=== PATIENT | male | born 1945 | race Caucasian/White ===

== ENCOUNTER → 2016-07-12 | Day surgery (SDC) | payer OTHER, MEDICARE ==
[2016-07-11 12:44] VITALS: Ht 172.7 cm; Wt 104.5 kg
[~2016-07-12] VITALS: Ht 172.7 cm; Wt 104.5 kg
[~2016-07-12] MED LIST: ATEN-173 PO; BUPIVACAINE 0.25% 2.5MG/ML PF 10 ML VIAL ONE; CHOL1000 PO; CYAN10005 PO; DILT120C68 PO; GLIP-197 PO; LIDOCAINE HCL 1% MPF 5 ML VIAL ONE; MAGN250T3 PO; PRD/25 PO; PRVC40 PO; TERA5CAP PO
--- NOTE | 2016-07-12 13:45 | History & Physical Bridge - [place] ---
H&P Re-Evaluation Bridge Note: I have examined the patient, reviewed the History & Physical and in the interval since the performance of the History & Physical I have noted the following changes of clinical significance: No changes noted
[2016-07-12 14:11] VITALS: TEMP 36.6
--- NOTE | 2016-07-12 14:15 | Discharge Instructions ---
Discharge Instructions Visit Reason for Visit: Low Back Pain Discharge Discharge Diagnosis / Problem: Low back pain Discharge Goals Goal(s): Decrease discomfort, Improve function Activity Recommendations Activity Limitations: resume your previous activity Anesthesia . Post Anesthesia Instructions: If you have had General Anesthesia or IV Sedation: * Do not drive today. * Resume driving when surgeon permits. * Do not make important decisions or sign legal documents today. * Call surgeon for: 1. Temperature elevations greater than 101 degrees F. 2. Uncontrollable pain. 3. Excessive bleeding. 4. Persistent nausea and vomiting. 5. Medication intolerance (nausea, vomiting or rash). * For nausea and vomiting use only clear liquids such as: tea, soda, bouillon until nausea subsides, then gradually increase diet as tolerated. * If you have any concerns or questions, call your surgeon's office. If physician is unavailable and it is an emergency, call 911 or go to the nearest emergency room. . Diet Recommendations Recommended Home Diet: resume previous diet Procedures Procedures Performed: Bilateral [id number] Branch Blocks Pending Studies Studies pending at discharge: no Medical Emergencies . Who to Call and When: Medical Emergencies: If at any time you feel your situation is an emergency, please call 911 immediately. . Non-Emergent Contact Non-Emergency issues call your: Specialist . . "Provider Documentation" section prepared by Julio C Moreno.
[2016-07-12 14:23] VITALS: BP 140/73; PULSE 57; O2SAT 98
--- NOTE | 2016-07-12 14:28 | OPERATIVE REPORT ---
DATE OF OPERATION: 07/12/2016 PREOPERATIVE DIAGNOSIS: Lumbar facet arthropathy L4-5. POSTOPERATIVE DIAGNOSIS: Same. PROCEDURE: Bilateral L4-5 medial branch blocks. INDICATIONS FOR PROCEDURE: The patient is a 71-year-old white male who has chronic low back pain. His examination was consistent with facet type pain at L4-5, worse with extension, extension rotation. He presents today for medial branch blocks to try to confirm that this is indeed the generator of pain in his lower lumbar spine. PHYSICAL EXAMINATION: Pleasant male, seated comfortably, in no apparent distress. He has point tenderness to palpation of his L4-5 facets bilaterally, worse with extension and particularly extension, rotation. He has normal lower extremity strength with the exception of the right S1 dermatomal distribution. CONSENT: Verbal and written consent was obtained from the patient. Risks and benefits were reviewed. Risks include but are not limited to abscess and allergic reaction. He wishes to proceed. DESCRIPTION OF PROCEDURE: The patient was taken back to the special procedures room of the [facility] where he was maintained in a prone position. Backside was cleansed with Betadine x3 and a dry sterile dressing was applied. Fluoroscope was used to identify the L4-5 transverse process junctions on the left. Overlying skin was anesthetized with 1.25 mL of lidocaine 1% with a 25-gauge 1.5-inch needle. A 25-gauge 3.5-inch spinal needle was then directed under fluoroscopic guidance to the target. Then bupivacaine 0.25% was used to inject and anesthetized these areas. After negative aspiration, 1 mL was used to both sites. The right L4 transverse process junction and the right L5 transverse process junction were then fluoroscopically identified. Overlying skin anesthetized with 1.25 mL of lidocaine 1% with a 25-gauge 1.5-inch needle. A 25-gauge 3.5-inch spinal needle was then directed targeting both sites and then injected with 1 mL of bupivacaine 0.25% at each site. Injection was well tolerated. DISPOSITION: The patient is taken out into the discharge recovery area where he will be discharged home once discharge criteria have been met. He has been asked to keep a pain journal for the next 2 days. He will follow up in the [facility] office. I attest to the content of the Intraoperative Record and any orders documented therein. Any exceptio ns are noted below.
== END | disposition home or self-care (01) ==
LOC: X.SURG 12:36
PROVIDERS: ATTEND Physical Medicine & Rehabilitation
DX: M47.817 Spondylosis without myelopathy or radiculopathy, lumbosacral region (principal); E11.9 Type 2 diabetes mellitus without complications; I10 Essential (primary) hypertension

== ENCOUNTER → 2016-08-23 | Day surgery (SDC) | payer OTHER, MEDICARE ==
[2016-08-21 09:52] VITALS: Ht 172.7 cm; Wt 104.5 kg
[~2016-08-23] VITALS: Ht 172.7 cm; Wt 104.5 kg
[~2016-08-23] MED LIST changes: +BUPIVACAINE 0.25% 2.5MG/ML PF 10 ML VIAL INFIL ONE; -BUPIVACAINE 0.25% 2.5MG/ML PF 10 ML VIAL ONE; +LIDOCAINE HCL 1% 20 ML VIAL ONE; -LIDOCAINE HCL 1% MPF 5 ML VIAL ONE
[2016-08-23 13:57] VITALS: TEMP 37.2
--- NOTE | 2016-08-23 14:02 | Discharge Instructions ---
Discharge Instructions Visit Reason for Visit: Low Back Pain Discharge Discharge Diagnosis / Problem: low back pain Discharge Goals Goal(s): Decrease discomfort, Improve function Activity Recommendations Activity Limitations: resume your previous activity Anesthesia . Post Anesthesia Instructions: If you have had General Anesthesia or IV Sedation: * Do not drive today. * Resume driving when surgeon permits. * Do not make important decisions or sign legal documents today. * Call surgeon for: 1. Temperature elevations greater than 101 degrees F. 2. Uncontrollable pain. 3. Excessive bleeding. 4. Persistent nausea and vomiting. 5. Medication intolerance (nausea, vomiting or rash). * For nausea and vomiting use only clear liquids such as: tea, soda, bouillon until nausea subsides, then gradually increase diet as tolerated. * If you have any concerns or questions, call your surgeon's office. If physician is unavailable and it is an emergency, call 911 or go to the nearest emergency room. . Diet Recommendations Recommended Home Diet: resume previous diet Procedures Procedures Performed: Bilateral L4-5 Radio Frequency Denervation. Pending Studies Studies pending at discharge: no Medical Emergencies . Who to Call and When: Medical Emergencies: If at any time you feel your situation is an emergency, please call 911 immediately. . Non-Emergent Contact Non-Emergency issues call your: Specialist . . "Provider Documentation" section prepared by Julio C Moreno.
[2016-08-23 14:06] VITALS: BP 144/67; PULSE 52; O2SAT 97
--- NOTE | 2016-08-23 16:09 | OPERATIVE REPORT ---
DATE OF OPERATION: 08/23/2016 PREOPERATIVE DIAGNOSIS: Chronic low back pain, bilateral L4-L5 facet arthropathy. POSTOPERATIVE DIAGNOSIS: Same. PROCEDURE: Bilateral L4-L5 facet denervations. INDICATIONS: The patient is a 71-year-old white male who underwent successful medial branch blocks bilaterally at L4-L5. He presents today for radiofrequency denervation at this area to provide him with longer lasting relief for chronic low back pain. PHYSICAL EXAMINATION: GENERAL: Pleasant male seated comfortably. MUSCULOSKELETAL: Lumbar paraspinal muscles were palpated and noted to be nontender. He has reproduction of pain with extension and his facets are tender bilaterally. He has normal motor examination and S1 dermatome was slightly decreased subjectively bilaterally. Negative seated straight leg raises. CONSENT: Verbal and written consent was obtained from patient. Risks and benefits were reviewed. Risks include but are not limited to an abscess and allergic reaction. The patient wishes to proceed. DESCRIPTION OF PROCEDURE: The patient was taken back to the special procedures room of the [facility] where he was maintained in the prone position. Backside was cleansed with Betadine x3 and a dry sterile dressing was applied. Fluoroscope was used to identify the left L4 transverse process junction and left L5 transverse process junction, and the overlying skin was anesthetized with 1.25 mL of lidocaine 1% with a 25 gauge 1.5-inch needle at each site. A 22-gauge 10 cm Golden needle was then placed contacting bone at each site. He had sensory stimulation that provoked sensation to 0.2 volts at both sites. Motor stimulation provoked localized robust paraspinal spasms, but nothing radiating down the leg. He underwent anesthetization with 1 mL lidocaine 1% at each site and then denervation 80 degrees 100 seconds x2 at each site and then he was anesthetized with bupivacaine 0.25% 1 mL at each site. The right L4 transverse process junction and the right L5 transverse process junction then was fluoroscopically identified. Overlying skin was anesthetized with a 25 gauge 1.5-inch needle with 1.25 mL of lidocaine 1% at each site. A 22 gauge 10 cm Diann needle contacted bone at each site. Motor stimulation provoked again at both sites at 0.2 to 0.1 millivolts. Motor stimulation did not provoke any radiating pain down the leg. At the final positioning and then the sites were anesthetized with additional 1 mL lidocaine 1%, were denervated at 80 degrees 100 seconds x2 at each site and then provided with an additional 1 mL bupivacaine 0.25% at each site. The procedure was well tolerated. DISPOSITION: 1. The patient is taken out into the discharge recovery area where he will be discharged home once discharge criteria have been met. 2. Follow up in the [facility] office in 2-4 weeks. I attest to the content of the Intraoperative Record and any orders documented therein. Any exceptions are noted below. ALBA
== END | disposition home or self-care (01) ==
LOC: X.SURG 12:01
PROVIDERS: ATTEND Physical Medicine & Rehabilitation
DX: M47.816 Spondylosis without myelopathy or radiculopathy, lumbar region (principal)

== ENCOUNTER → 2016-10-29 | Outpatient (CLI) | payer OTHER, MEDICARE ==
[~2016-10-29] MED LIST changes: -BUPIVACAINE 0.25% 2.5MG/ML PF 10 ML VIAL INFIL ONE; -LIDOCAINE HCL 1% 20 ML VIAL ONE
--- NOTE | 2016-10-29 11:01 | DIAGNOSTIC IMAGING REPORT ---
LUMBAR SPINE MRI HISTORY: LOW BACK PAIN TECHNIQUE: Multiplanar multisequence MRI of the lumbar spine was performed without the use of contrast. COMPARISON: PET CT 02/20/2013. FINDINGS: For the purpose of the report the L5-S1 disc space will be located on axial image 23 of 25. Straightening of the lumbar spine. Alignment is intact. No acute fractures. Vertebral body hemangiomas at L2 and L4. The largest at L2 measures 2.2 cm. Mild disc space narrowing at L3-L4 and L5-S1. Moderate disc space narrowing at L4-L5. The conus terminates at the L1 level. Large anterior osteophytes seen at L3-L5. The visualized retroperitoneal soft tissues are unremarkable. Mild edema within the erector spinae muscles with a small amount of subcutaneous edema. There is also mild fatty atrophy of the erector spinae muscles. L1-L2: No significant central canal or neural foraminal narrowing. L2-L3: Small broad-based posterior disc bulge with facet hypertrophy resulting in mild central canal and mild bilateral neural foraminal narrowing. L3-L4: Small broad-based posterior disc bulge with facet hypertrophy resulting in mild central canal and mild bilateral neural foraminal narrowing. L4-L5: Small broad-based posterior disc bulge asymmetric to the right without significant central canal narrowing. There is moderate bilateral neural foraminal narrowing. There is suggestion of a prior left-sided hemilaminectomy. L5-S1: Broad-based posterior disc bulge with a left paracentral focal disc protrusion demonstrating mild inferior subligamentous migration. This compresses the transiting left S1 nerve root. There is also severe bilateral neural foraminal narrowing due to the disc bulge and facet hypertrophy. No significant central canal narrowing. IMPRESSION: 1. Multilevel lumbar spondylosis as described above most pronounced at the L5-S1 level where there is a left paracentral focal disc protrusion which compresses the transiting left S1 nerve root. 2. Mild edema within the bilateral erector spinae muscles which could represent a muscular strain. 3. Straightening of the lumbar spine. 4. No fracture or subluxation. Electronically signed by: Pepe Bond M.D. 10/29/2016 11:00 AM Dictated Date/Time: 10/29/2016 10:45 AM
== END | disposition home or self-care (01) ==
LOC: C.OPENMRI 09:38
PROVIDERS: ATTEND Physical Medicine & Rehabilitation
DX: M54.5 Low back pain (principal)

== ENCOUNTER → 2017-01-23 | Day surgery (SDC) | payer OTHER, MEDICARE ==
[2017-01-02 12:46] VITALS: Ht 172.7 cm; Wt 104.5 kg
[~2017-01-23] VITALS: Ht 172.7 cm; Wt 104.5 kg
[~2017-01-23] MED LIST changes: +IOPAMIDOL INJ 61% 15 ML VIAL ONE; +LIDOCAINE HCL 1% MPF 5 ML VIAL ONE; +SODIUM CHLORIDE 0.9% INJ 10 ML VIAL ONE
--- NOTE | 2017-01-23 15:17 | Discharge Instructions ---
Discharge Instructions Date of Service Jan 23, 2017. Visit Reason for Visit: Lumbar Spinal Stenosis Discharge Discharge Diagnosis / Problem: low back pain Discharge Goals Goal(s): Decrease discomfort, Improve function Activity Recommendations Activity Limitations: resume your previous activity Anesthesia . Post Anesthesia Instructions: If you have had General Anesthesia or IV Sedation: * Do not drive today. * Resume driving when surgeon permits. * Do not make important decisions or sign legal documents today. * Call surgeon for: 1. Temperature elevations greater than 101 degrees F. 2. Uncontrollable pain. 3. Excessive bleeding. 4. Persistent nausea and vomiting. 5. Medication intolerance (nausea, vomiting or rash). * For nausea and vomiting use only clear liquids such as: tea, soda, bouillon until nausea subsides, then gradually increase diet as tolerated. * If you have any concerns or questions, call your surgeon's office. If physician is unavailable and it is an emergency, call 911 or go to the nearest emergency room. . Diet Recommendations Recommended Home Diet: resume previous diet Procedures Procedures Performed: Lumbar Epidural Steroid Injection Pending Studies Studies pending at discharge: no Medical Emergencies . Who to Call and When: Medical Emergencies: If at any time you feel your situation is an emergency, please call 911 immediately. . Non-Emergent Contact Non-Emergency issues call your: Specialist . . "Provider Documentation" section prepared by Julio C Moreno. .
[2017-01-23 15:24] VITALS: BP 122/72; PULSE 54; O2SAT 93
--- NOTE | 2017-01-23 15:49 | OPERATIVE REPORT ---
DATE OF OPERATION: 01/23/2017 PREOPERATIVE DIAGNOSIS: Lumbar spinal stenosis with neurogenic claudication. POSTOPERATIVE DIAGNOSIS: Same. PROCEDURE: Right paramedian L5-S1 intralaminar epidural steroid injection under fluoroscopic guidance. SURGEON: Dr. Julio C Moreno. INDICATIONS: The patient is a 71-year-old white male who presents today for an epidural injection. He has not responded to conservative measures. Still continues to be bothered and functionally limited by pain particularly with ambulating and standing. PHYSICAL EXAMINATION: Pleasant male seated comfortably. He has no point tenderness to palpation of his lower back. He has normal motor and sensory examination with no sensory loss. CONSENT: Verbal and written consent was obtained from the patient. Risks and benefits were reviewed. Risks include but are not limited to epidural abscess, epidural hematoma, allergic reaction, dural puncture. The patient wishes to proceed. PROCEDURE: The patient was taken back to the special procedures room of the [facility] where he was maintained in a prone position. Backside was cleansed with Betadine x3 and a dry sterile dressing was applied. Fluoroscope was used to identify the L5-S1 intralaminar space. Overlying skin on the right side was anesthetized with 4 mL of lidocaine 1% with a 25 gauge 1.5-inch needle. A 22 gauge 4-1/4 inch Tuohy needle is directed towards the interlaminar space and advanced under lateral fluoroscopic guidance to a depth of 9 cm when loss of resistance is noted. Isovue-300 contrast 1 mL was injected in which demonstrated epidural uptake pattern which was confirmed with both AP and lateral views. He then underwent injection after negative aspiration of 40 mg of Depo-Medrol, 4 mL of preservative free sodium chloride. Injection was well tolerated. DISPOSITION: 1. The patient is taken out into the discharge recovery area where he will be discharged home once discharge criteria have been met. 2. Follow up in the [facility] office in 2-4 weeks. I attest to the content of the Intraoperative Record and any orders documented therein. Any exception s are noted below.
== END | disposition home or self-care (01) ==
LOC: X.SURG 13:37
PROVIDERS: ATTEND Physical Medicine & Rehabilitation
DX: M48.07 Spinal stenosis, lumbosacral region (principal); M54.5 Low back pain

== ENCOUNTER 2017-10-29 08:40 | Inpatient (IN) | payer OTHER, MEDICARE ==
[2017-10-17 09:33] VITALS: BMI 35.0
--- NOTE | 2017-10-17 10:10 | PAT Medication Instructions ---
Service Date Oct 17, 2017. Current Home Medication List Atenolol (Tenormin), 25 MG PO QAM Cholecalciferol (D 2000), 1 TAB PO QAM Cyanocobalamin (B-12), 1 TAB PO QAM Diltiazem Hcl Ext Rel (Tiazac), 120 MG PO QAM Glipizide (Glipizide Er), 1 TAB PO QAM Losartan Potassium (Cozaar), 25 MG PO QPM Magnesium Oxide (Mg Supplement (Magnesium), 1 TAB PO QAM Pravastatin (Pravachol ), 20 MG PO QPM Prednisone (Prednisone), 5 MG PO QAM Terazosin (Hytrin), 5 MG PO HS Medication Instructions For Your Scheduled Surgery - Hold the following medications the morning of surgery: Cholecalciferol (D 2000), 1 TAB PO QAM Cyanocobalamin (B-12), 1 TAB PO QAM Glipizide (Glipizide Er), 1 TAB PO QAM Magnesium Oxide (Mg Supplement (Magnesium), 1 TAB PO QAM - Take the following medications the morning of surgery with a sip of water: Atenolol (Tenormin), 25 MG PO QAM Diltiazem Hcl Ext Rel (Tiazac), 120 MG PO QAM Prednisone (Prednisone), 5 MG PO QAM - Take the following medications as scheduled the night before surgery: Losartan Potassium (Cozaar), 25 MG PO QPM Pravastatin (Pravachol ), 20 MG PO QPM Terazosin (Hytrin), 5 MG PO HS If you have any questions please call us at [phone] or [phone] or [phone]
--- NOTE | 2017-10-17 10:43 | DIAGNOSTIC IMAGING REPORT ---
CHEST 2 VIEWS ROUTINE CLINICAL HISTORY: Preoperative chest COMPARISON STUDY: March 25, 2013 FINDINGS: The heart is the upper limits of normal in size. There is slight progression in the bilateral interstitial basilar opacities left greater than right. There is no acute lobar consolidation. There is no overt failure. There are no pleural effusions.[ IMPRESSION: Minor progression in the interstitial lung disease with a basilar predominance. Electronically signed by: Neville Taveras M.D. 10/17/2017 10:42 AM Dictated Date/Time: 10/17/2017 10:41 AM
--- NOTE | 2017-10-17 10:44 | DIAGNOSTIC IMAGING REPORT ---
LATERAL VIEW OF THE CERVICAL SPINE IN FLEXION AND EXTENSION (3 VIEWS) CLINICAL HISTORY: Rheumatoid arthritis. Preop study. COMPARISON STUDY: No previous studies for comparison. FINDINGS: The prevertebral soft tissues are normal. There are mild multilevel degenerative changes. There is no evidence of instability on flexion or extension. Incidental note is made of calcifications within the ligamentum nuchae. IMPRESSION: 1. Degenerative change 2. No evidence of instability on flexion or extension Electronically signed by: Neville Taveras M.D. 10/17/2017 10:43 AM Dictated Date/Time: 10/17/2017 10:42 AM
[2017-10-17 11:34] LABS: CALCIUM 8.7 mg/dl (8.5-10.1); CREATININE 1.95 mg/dl (0.60-1.40); POTASSIUM 3.7 mmol/L (3.5-5.1)
[2017-10-17 11:40] LABS: HEMATOCRIT 39.6 % (42-52); HEMOGLOBIN 13.8 g/dL (14.0-18.0); MEAN CELL VOLUME 86.7 fL (80-100); MEAN CORPUSCULAR HEMOGLOBIN 30.2 pg (25-34); MEAN CORPUSCULAR HGB CONC 34.8 g/dl (32-36); MEAN PLATELET VOLUME 11.9 fL (7.4-10.4); PLATELET COUNT 102 K/uL (130-400); RED CELL DISTRIBUTION WIDTH CV 14.5 % (11.5-14.5); RED CELL DISTRIBUTION WIDTH SD 44.8 fL (36.4-46.3); WHITE BLOOD COUNT 6.61 K/uL (4.8-10.8)
[2017-10-17 11:41] LABS: BASO % 0.5 %; BASO ABS # 0.03 K/uL (0-0.2); EOS % 1.5 %; IG# 0.03 K/uL (0.00-0.02); LYMPH % 5.3 %; LYMPH ABS # 0.35 K/uL (1.2-3.4); MONO % 7.3 %; MONO ABS # 0.48 K/uL (0.11-0.59); NEUT % 84.9 %; NEUT ABS # 5.62 K/uL (1.4-6.5)
[~2017-10-29] VITALS: Ht 172.7 cm; Wt 105.6 kg
[2017-10-29] VITALS (7 sets, daily range): BP systolic 116–171; BP diastolic 57–74; PULSE 53–76; TEMP 36.4–36.9; O2SAT 90–97; Ht 172.7 cm; Wt 105.6 kg
[~2017-10-29 08:40] MED LIST changes: +ACETAMINOPHEN 500 MG TAB PO SCH; +CEFAZOLIN 2000MG IV PUSH 15 ML IV SCH; -CHOL1000 PO; +CHOL1TAB76 PO; -CYAN10005 PO; +CYAN1TAB17 PO; +CeleBREX 200 MG CAP PO SCH; +GABAPENTIN 300 MG CAP PO SCH; -IOPAMIDOL INJ 61% 15 ML VIAL ONE; +LACTATED RINGER'S 1000ML 1,000 ML IV SCH; -LIDOCAINE HCL 1% MPF 5 ML VIAL ONE; +LOSA1TAB PO; +MAGN1CAP2 PO; -MAGN250T3 PO; +PRAV20TA PO; -PRD/25 PO; +PRED-301 PO; -PRVC40 PO; -SODIUM CHLORIDE 0.9% INJ 10 ML VIAL ONE
[2017-10-29] MEDS ORDERED: ATROPINE SULFATE 0.1 MG/ML 5ML SYR IV PRN (08:45)
[2017-10-29] MEDS ORDERED: FENTANYL CITRATE INJ 50 MCG/1 ML 2 ML VIAL IV PRN (08:45)
[2017-10-29] MEDS ORDERED: ONDANSETRON INJ 2 MG/ML 2 ML VIAL IV PRN ×2 (08:45→14:30)
[2017-10-29] MEDS ORDERED: HYDROmorphone INJ 0.5 MG/0.5 ML SYR IV PRN (08:45)
[2017-10-29] MEDS ORDERED: EpHEDrine SULFATE INJ 50 MG/ML AMP IV PRN (08:45)
[2017-10-29] MEDS ORDERED: DEXAMETHASONE SOD INJ 4 MG/ML VIAL ONE (10:33)
[2017-10-29] MEDS ORDERED: MIDAZOLAM HCL 1 MG/ML 2ML VIAL ONE (10:33)
[2017-10-29] MEDS ORDERED: ONDANSETRON INJ 2 MG/ML 2 ML VIAL ONE (10:33)
[2017-10-29] MEDS ORDERED: NEOSTIGMINE METHYLSULFATE 1 MG/ML 10ML VIAL ONE (10:33)
[2017-10-29] MEDS ORDERED: LIDOCAINE HCL 2% 2 ML VIAL (20MG/ML) ONE (10:33)
[2017-10-29] MEDS ORDERED: PROPOFOL IV EMULSION 10 MG/ML 20 ML VIAL ONE (10:33)
[2017-10-29] MEDS ORDERED: GLYCOPYRROLATE INJ 0.2 MG/ML VIAL ONE ×2 (10:33→13:42)
[2017-10-29] MEDS ORDERED: FENTANYL CITRATE INJ 50 MCG/1 ML 2 ML VIAL ONE ×2 (10:34→14:22)
--- NOTE | 2017-10-29 11:45 | History and Physical ---
History & Physical Date October 29, 2017. Chief Complaint Back and leg pain History of Present Illness The patient is a 72 year old male with complaints of back and leg pain Additional History Hepatic Disease: No Endocrine Disorder: No Kidney Disease: No Hypertension: Yes Heart Disease: No Bleeding Tendencies: No Infectious Diseases: No Other: Diabetes Allergies Coded Allergies: No Known Allergies (Verified , 10/29/17) Home Medications Scheduled Atenolol (Tenormin), 25 MG PO QAM Cholecalciferol (D 1999), 1 TAB PO QAM Cyanocobalamin (B-12), 1 TAB PO QAM Diltiazem Hcl Ext Rel (Tiazac), 120 MG PO QAM Glipizide (Glipizide Er), 1 TAB PO QAM Losartan Potassium (Cozaar), 25 MG PO QPM Magnesium Oxide (Mg Supplement (Magnesium), 1 TAB PO QAM Pravastatin (Pravachol ), 20 MG PO QPM Prednisone (Prednisone), 5 MG PO QAM Terazosin (Hytrin), 5 MG PO HS Physical Examination Skin: warm/dry, no rash Eyes: normal inspection, EOMI, sclerae normal ENT: normal ENT inspection, pharynx normal Head: normocephalic, atraumatic Neck: supple, no adenopathy, trachea midline Respiratory/Chest: lungs clear, normal breath sounds, no respiratory distress Cardiovascular: regular rate, rhythm, no edema, no murmur Abdomen / GI: normal bowel sounds, non tender Back: normal inspection Extremities: normal inspection, normal range of motion Neurologic/Psych: no motor/sensory deficits, alert, normal reflexes, oriented x 3 Diagnosis Lumbar spinal stenosis with neurogenic claudication Plan of Treatment T LIF L5-S1
[2017-10-29] MEDS ORDERED: BACITRACIN 50000 UNIT VIAL ONE (11:54)
[2017-10-29] MEDS ORDERED: BUPIVACAINE 0.5 % 5 MG/1 ML MPF 30ML VIAL ONE (11:55)
[2017-10-29] MEDS ORDERED: EpINEphrine INJ 1MG/ML AMP 1 MG/ML AMP ONE (11:56)
[2017-10-29] MEDS ORDERED: CISATRACURIUM BESYLATE IV SOLN 2 MG/ML 10 ML VIAL ONE (13:41)
[2017-10-29] MEDS ORDERED: SUCCINYLCHOLINE CHLORIDE 20 MG/ML 10 ML VIAL IV ONE (13:42)
[2017-10-29] MEDS ORDERED: EpHEDrine SULFATE 50MG/5ML SYR ONE (13:42)
[2017-10-29] MEDS ORDERED: PHENYLEPHRINE 100MCG/ML 5ML SYR ONE (13:42)
[2017-10-29] MEDS ORDERED: FLOSEAL HEMOSTATIC MATRIX 10ML TOP ONE (14:12)
[2017-10-29] MEDS ORDERED: SODIUM CHLORIDE 0.9% 1000ML 1,000 ML IV SCH (14:24)
--- NOTE | 2017-10-29 14:24 | [facility] Operative Report ---
Operative Report Operative Date October 29, 2017. Pre-Operative Diagnosis Lumbar spinal stenosis with neurogenic claudication Post-Operative Diagnosis Lumbar spinal stenosis with neurogenic claudication Procedure(s) Performed 1. Lumbar decompression medial facetectomy foraminotomies L4-5 L5-S1. #2 posterior spinal fusion L5-S1. #3 posterior instrumentation L5-S1. #4 interbody fusion L5-S1. #5 titanium cage 10 x 26 at L5-S1. #6 placement of local autograft posterior lateral gutters. #7 infuse collagen sponge, Nast graft the posterior gutters and ostial amp in the interbody space. Surgeon Dr. Julio C Alberto [employer] Sales Representative Surgeon(s) May Beatty PA-C Estimated Blood Loss 300ml Findings Severe spinal stenosis. Specimens None per surgeon Anesthesia Type General Description of Procedure Patient was met with preoperatively case discussed all questions addressed. After informed consent obtained patient was taken to the operative suite underwent intubation and placed in the prone position the Damian table on top of the Alvin frame. All bony prominences well-padded eyes inspected to ensure no external pressure placed upon. This point the lumbar spine was prepped and draped in normal sterile fashion. Sharp dissection with the assistance Bovie cautery was performed on November exposing the lamina and transverse processes of L5 and sacral ala bilaterally. From caudocephalad fashion complete laminectomy of L5 partial laminectomy L4 was performed addressing severe lateral recess and foraminal stenosis. If this complete pedicle screws were placed in L5-S1 levels bilaterally with the assistance of fluoroscopy. Probe size rods were placed. Through a transforaminal approach and left complete discectomy was performed endplates created to subcortical bleeding bone and a 10 x 26 mm titanium cage filled with ostium bone graft tapped in position. The rods were then compressed locked in final position bilaterally. The transverse processes of L5 and sacral ala burred to subcortical bleeding bone. Infuse collagen sponge mesh graft and locally harvested morselized autograft placed in the posterior lateral gutters. A 15 round YOANA drain inserted. Incision was then closed with 1 Vicryl in the fascia 2-0 Vicryl subcutaneously 4-0 Monocryl for final closure Steri-Strips sterile dressings placed. Patient weakened the PACU stable condition. Please note May Beatty present of the entire procedure involved in patient positioning complex portions of the surgery and fashion closure. I attest to the content of the Intraoperative Record and any orders documented therein. Any exceptions are noted below.
[2017-10-29] MEDS ORDERED: ALUMINUM/MAGNESIUM SUSP 30 ML UDC PO PRN (14:30)
[2017-10-29] MEDS ORDERED: METOCLOPRAMIDE HCL INJ 5 MG/ML 2 ML VIAL IV PRN (14:30)
[2017-10-29] MEDS ORDERED: NALOXONE HCL 0.4 MG/1 ML VIAL/CARP IV PRN (14:30)
[2017-10-29] MEDS ORDERED: ACETAMINOPHEN IV 100 ML IV PRN (14:30)
[2017-10-29] MEDS ORDERED: CEFAZOLIN IV 2,000 MG in DEXTROSE 5% 50ML 50 ML IV SCH (14:30)
[2017-10-29] MEDS ORDERED: SOD PHOSPHATE/SOD BIPHOSPHATE ENEMA 132 ML BTL PR PRN (14:30)
[2017-10-29] MEDS ORDERED: LORAZEPAM INJ 0.5 MG in SYRINGE 0 ML IV PRN (14:30)
[2017-10-29] MEDS ORDERED: ACETAMINOPHEN 500 MG TAB PO PRN (14:30)
[2017-10-29] MEDS ORDERED: DO NOT ADMINISTER FLU VACCINE PRN (14:30)
[2017-10-29] MEDS ORDERED: HYDROmorphone HCL 0.5MG/ML 50 ML CASSETTE IV PRN (14:30)
[2017-10-29] MEDS ORDERED: MAGNESIUM HYDROXIDE SUSP 30 ML UDC PO PRN (14:30)
[2017-10-29] MEDS ORDERED: PROMETHAZINE HCL INJ 12.5 MG in SODIUM CHLORIDE 0.9% 50ML 50 ML IV PRN (14:30)
[2017-10-29] MEDS ORDERED: DO NOT ADMINISTER PNEUMOCOCCAL VACCINE PRN (14:30)
[2017-10-29] MEDS ORDERED: LORAZEPAM 0.5 MG TAB PO PRN (14:30)
[2017-10-29] MEDS ORDERED: BISACODYL 10 MG SUPP PR PRN (14:30)
[2017-10-29] MEDS ORDERED: FAMOTIDINE 20 MG TAB PO PRN (14:30)
[2017-10-29] MEDS ORDERED: hydrOXYzine HCL 25 MG TAB PO PRN (14:30)
[2017-10-29] MEDS ORDERED: HYDROmorphone HCL 0.5MG/ML 50 ML CASSETTE ONE (14:46)
--- NOTE | 2017-10-29 15:12 | Anesthesiology Progress Note ---
Anesthesia Post Op Note Date & Time October 29, 2017 at 15:11 Vital Signs Pain Intensity: 0 Vital Signs Past 12 Hours Date Time Temp Pulse Resp B/P (MAP) Pulse Ox O2 Delivery O2 Flow Rate FiO2 10/29/17 15:10 64 22 140/57 98 Nasal Cannula 4 10/29/17 15:00 66 21 147/61 96 Oxymask 10 10/29/17 14:50 66 17 115/52 95 Oxymask 10 10/29/17 14:42 36.1 72 16 120/51 96 Oxymask 10 10/29/17 09:23 36.5 53 20 137/62 92 Room Air Notes Mental Status: alert / awake / arousable, participated in evaluation Pt Amnestic to Procedure: Yes Nausea / Vomiting: adequately controlled Pain: adequately controlled Airway Patency, RR, SpO2: stable & adequate BP & HR: stable & adequate Hydration State: stable & adequate Anesthetic Complications: no major complications apparent
--- NOTE | 2017-10-29 15:41 | DIAGNOSTIC IMAGING REPORT ---
LUMBAR SPINE 2 OR 3 VIEW CLINICAL HISTORY: L5-S1 LUMBAR INTERBODY FUSION fusion TECHNIQUE: Image intensifier COMPARISON STUDY: None FINDINGS: Image intensifier was used for an L5-S1 fusion and disc spacer placement IMPRESSION: Image intensifier usage for lumbar laminectomy and fusion The above report was generated using voice recognition software. It may contain grammatical, syntax or spelling errors. Electronically signed by: Chet Yu M.D. 10/29/2017 3:39 PM Dictated Date/Time: 10/29/2017 3:36 PM
[2017-10-29] MEDS ORDERED: DEXTROSE 50% 50 ML SYR IV PRN (17:00)
[2017-10-29] MEDS ORDERED: CARBOHYDRATES FOR HYPOGLYCEMIA PO PRN (17:00)
[2017-10-29] MEDS ORDERED: GLUCAGON FOR INJ 1 MG VIAL SQ PRN (17:00)
[2017-10-29] MEDS ORDERED: GLUCOSE 10 TABS/TUBE PO PRN (17:00)
[2017-10-29] MEDS ORDERED: GLUCOSE 40% GEL 15 GM TUBE PO PRN (17:00)
--- NOTE | 2017-10-29 17:23 | Medical Consult ---
Consultation Date of Consultation: October 29, 2017. Attending Physician: Julio C Alberto D.O. Reason for Consultation: Medical management History of Present Illness Pt is 72 y/o M with PMH DM II, HTN, HLD, RA, BPH, interstitial lung disease, history of lymphoma S/P chemo in 2009 seen in medical consult after L4-L5, L5- S1 lumbar decompression and spinal fusion of L5-S1 by Dr. Alberto. Patient states pain is moderately well controlled at this time. Denies any paresthesias to lower extremities at this time. Denies nausea or vomiting. Drinking fluids without difficulty. Hasn't urinated yet since procedure. Last BM yesterday. Reports interstitial lung disease and has exertional SOB chronically, denies any increased SOB. Denies fever/chills, diaphoresis, N/V/D/C , HAIR, dizziness, syncope, vision changes, neck pain, CP, orthopnea, palpitations , cough, sore throat, choking, otalgia, rhinorrhea, abdominal pain, rashes, urinary symptoms, recent weight changes. Past Medical/Surgical History Medical Problems: (1) BPH (benign prostatic hyperplasia) Status: Chronic (2) DM type 2 (diabetes mellitus, type 2) Status: Chronic (3) HTN (hypertension) Status: Chronic (4) Hyperlipidemia Status: Chronic (5) Interstitial lung disease Status: Chronic (6) Lymphoma in remission Status: Chronic (7) Rheumatoid arthritis Status: Chronic Surgical Problems: (1) History of colon resection Permanent Comment: approx 2012 - hx colon mass - reported benign Status: Resolved (2) History of lumbar surgery Permanent Comment: 10/29/17 -L4-L5, L5-S1 lumbar decompression and L5-S1 spinal fusion-Dr. Alberto [facility] Status: Resolved Family History FH: cancer Social History Smoking Status: Former Smoker (quit 20 years ago) Smokeless Tobacco Use: former - quit 20 years ago Alcohol Use: none Drug Use: none Allergies Coded Allergies: No Known Allergies (Verified , 10/29/17) Current Inpatient Medications Current Inpatient Medications Medications (Trade) Dose Ordered Sig/Katharine Route Start Time Stop Time Status Last Admin Dose Admin Cefazolin Sodium 15 ml @ 3.75 mls/ min PREOP IV 10/29/17 06:00 10/29/17 18:00 10/29/17 12:18 3.75 MLS/MIN Acetaminophen (Tylenol Tab) 1,000 mg PREOP PO 10/29/17 06:00 10/29/17 18:00 10/29/17 09:07 1,000 MG Celecoxib (CeleBREX CAP) 200 mg PREOP PO 10/29/17 06:00 10/29/17 18:00 Future Hold Gabapentin (Neurontin Cap) 300 mg PREOP PO 10/29/17 06:00 10/29/17 18:00 10/29/17 09:07 300 MG Lactated Ringer's 1,000 ml @ 15 mls/hr Q24H IV 10/29/17 06:00 10/30/17 05:59 Promethazine HCl 12.5 mg/Sodium Chloride 50.5 ml @ 202 mls/hr Q6H PRN IV 10/29/17 14:30 11/28/17 14:29 Ondansetron HCl (Zofran Inj) 4 mg Q6H PRN IV 10/29/17 14:30 11/28/17 14:29 Metoclopramide HCl (Reglan Inj) 10 mg Q6H PRN IV 10/29/17 14:30 11/28/17 14:29 Lorazepam (Ativan Tab) 0.5 mg Q8H PRN PO 10/29/17 14:30 11/28/17 14:29 Lorazepam 0.5 mg/ Syringe 0.25 ml @ 1 mls/min Q8H PRN IV 10/29/17 14:30 11/28/17 14:29 Pneumococcal Polysaccharide Vaccine 1 ea PRN PRN N/A 10/29/17 14:30 11/28/17 14:29 Influenza Virus Vacc Triv Types A&B 1 ea PRN PRN N/A 10/29/17 14:30 11/28/17 14:29 Polyethylene (Miralax Powder Packet) 17 gm Q6 PO 10/31/17 06:00 11/30/17 05:59 Bisacodyl (Dulcolax Supp) 10 mg DAILY PRN ID 10/29/17 14:30 11/28/17 14:29 Magnesium Hydroxide (Milk Of Magnesia Susp) 30 ml DAILY PRN PO 10/29/17 14:30 11/28/17 14:29 Hydromorphone HCl (Dilaudid Inj) 0.5-1mg prn moder... Q3H PRN IV 10/30/17 06:00 11/13/17 05:59 Oxycodone HCl (Roxicodone Immediate Rel Tab) 5-10mg prn moderate to sev... Q4H PRN PO 10/30/17 06:00 11/13/17 05:59 Sodium Chloride 1,000 ml @ 150 mls/hr Q6H40M IV 10/29/17 17:00 11/28/17 16:59 Acetaminophen (Tylenol Tab) 1,000 mg Q8H PRN PO 10/29/17 14:30 11/28/17 14:29 Acetaminophen 100 ml @ 400 mls/hr Q8H PRN IV 10/29/17 14:30 11/28/17 14:29 Naloxone HCl (Narcan Inj) 0.1 mg Q5M PRN IV 10/30/17 06:00 11/29/17 05:59 Senna/Docusate Sodium (Senokot S Tab) 2 tab HS PO 10/29/17 21:00 11/28/17 20:59 Sodium Biphosphate/ Sodium Phosphate (Fleet Enema) 132 ml ONE PRN ID 10/29/17 14:30 11/28/17 14:29 Hydroxyzine HCl (Vistaril Tab) 25 mg Q8H PRN PO 10/29/17 14:30 11/28/17 14:29 Al Hydroxide/Mg Hydroxide (Maalox Susp) 30 ml Q6H PRN PO 10/29/17 14:30 11/28/17 14:29 Famotidine (Pepcid Tab) 20 mg Q12 PRN PO 10/29/17 14:30 11/28/17 14:29 Diphenhydramine HCl (Benadryl Cap) 25 mg Q6H PRN PO 10/29/17 14:30 11/28/17 14:29 Miscellaneous Information (Discontinue ADMISSIONS REPRESENTATIVE) 1 ea 0600 N/A 10/30/17 06:00 10/30/17 06:01 Naloxone HCl (Narcan Inj) 0.1 mg Q5M PRN IV 10/29/17 14:30 10/30/17 06:00 Hydromorphone HCl (Dilaudid Vacuum Drier Tender) 25 mg PRN PRN IV 10/29/17 14:30 5/9/18 06:00 10/29/17 16:01 25 MG Sodium Chloride 1,000 ml @ 15 mls/hr Q24H IV 10/29/17 14:24 10/30/17 06:00 Atenolol (Tenormin Tab) 25 mg QAM PO 10/30/17 09:00 11/29/17 08:59 Diltiazem HCl (TIAzac CAP) 120 mg QAM PO 10/30/17 09:00 11/29/17 08:59 Losartan Potassium (coZAAR TAB) 25 mg QPM PO 10/29/17 21:00 11/28/17 20:59 Pravastatin Sodium (Pravachol Tab) 20 mg QPM PO 10/29/17 21:00 11/28/17 20:59 Prednisone (PredniSONE TAB) 5 mg QAM PO 10/30/17 09:00 11/29/17 08:59 Terazosin HCl (Hytrin Cap) 5 mg HS PO 10/29/17 21:00 11/28/17 20:59 Glipizide (GlipiZIDE EXTENDED REL TAB) 5 mg QDB PO 10/30/17 08:30 11/29/17 08:29 Cefazolin Sodium 2000 mg/Syringe 15 ml @ 3.75 mls/ min Q8H IV 10/29/17 20:00 10/30/17 04:03 Review of Systems See HPI for pertinent positives & negatives. All other systems reviewed and were otherwise negative Physical Exam Date Time Temp Pulse Resp B/P (MAP) Pulse Ox O2 Delivery O2 Flow Rate FiO2 10/29/17 16:32 94 Nasal Cannula 4.0 10/29/17 16:32 94 Nasal Cannula 4.0 10/29/17 16:32 36.5 63 16 154/74 (100) 90 Nasal Cannula 4.0 10/29/17 16:02 36.5 68 16 141/64 (89) 96 Nasal Cannula 4.0 10/29/17 15:50 61 20 142/55 93 Nasal Cannula 4 10/29/17 15:35 59 21 141/56 93 Nasal Cannula 4 10/29/17 15:20 36.3 62 24 152/64 95 Nasal Cannula 4 10/29/17 15:10 64 22 140/57 98 Nasal Cannula 4 10/29/17 15:00 66 21 147/61 96 Oxymask 10 10/29/17 14:50 66 17 115/52 95 Oxymask 10 10/29/17 14:42 36.1 72 16 120/51 96 Oxymask 10 10/29/17 09:23 36.5 53 20 137/62 92 Room Air General Appearance: no apparent distress, + obese Head: normocephalic, atraumatic Eyes: normal inspection, PERRL, sclerae normal ENT: hearing grossly normal, pharynx normal, + pertinent finding (mucous membranes moist) Neck: supple, no JVD, trachea midline Respiratory/Chest: lungs clear, normal breath sounds, no respiratory distress Cardiovascular: regular rate, rhythm, normal peripheral pulses Abdomen/GI: normal bowel sounds, non tender, soft Back: + pertinent finding (+surgical dressing in place to lower lumbar region without drainage noted. +mild blood noted in surgical drain) Extremities/Musculoskelatal: normal capillary refill, no pedal edema, + pertinent finding (Bilateral distal pulses intact with sensation to light touch intact bilateral LE. Bilateral pedal pulls & pushes intact bilaterally) Neurologic/Psych: alert, normal mood/affect, oriented x 3 Skin: normal color, warm/dry Laboratory Results Last 24 Hours Test 10/29/17 09:09 10/29/17 15:04 Bedside Glucose 165 mg/dl 201 mg/dl Assessment & Plan Pt POST OP DAY#0 S/P L4-L5, L5-S1 LUMBAR DECOMPRESSION AND L5-S1 SPINAL FUSION BY DR. ALBERTO -pain management per ortho -wound management per ortho -PT/OT as appropriate -DVT prophylaxis per ortho -incentive spirometry -monitor H&H for acute blood loss anemia DM II Glucose: 201 -HA1c in a.m. -Lantus, NovoLog sliding scale per protocol RHEUMATOID ARTHRITIS -Continue prednisone HTN Stable at this time -Continue losartan, diltiazem, atenolol INTERSTITIAL LUNG DISEASE Chronic exertional SOB. Denies any increased SOB or current SOB while sitting in bed. 96% on 4L oxygen NC at this time, just returned from [facility]. -continue to monitor oxygen sats -Continue prednisone -Continue supplemental oxygen HLD -Continue statin BPH -Continue terazosin THROMBOCYTOPENIA from preop labs on 10/17/17 platelet count 102. No prior labs available for review -Monitor CBC RENAL INSUFFICIENCY Cr: 1.95 from preop labs on 10/17/17. No prior labs available for review -Monitor renal functions -Avoid nephrotoxic agents when possible DVT Prophylaxis -SCDs per ortho Disposition Admitted MedSurg Full code Follows with Dr Kasandra Macedo for routine care Pt was seen with Dr Kuo. See addendum Dr Kearney will be following remaining hospital course ATTENDING ADDENDUM : Patient seen and examined care coordinated with Diane Smart PA-C This is a 72-year-old male who underwent elective lumbar decompression surgery for chronic low back pain lumbar spinal stenosis Recovering well postop H&H will be monitored tomorrow to assess acute blood loss anemia Indication for blood transfusion hemoglobin less than 7 and are associated symptoms/shortness of breath /dyspnea on exertion/hypotension/dizziness spell Possible AK I on CKD stage III Creatinine 1.9 No prior lab to compared Will avoid NSAIDs, contrast studies Repeat PRP in a.m. Please refer to the further documentation by Diane Smart PA-C for discussion of other chronic issues Chichi Kuo MD Additional Copies To Kasandra Anderson D.O.
[2017-10-29] MEDS: SODIUM CHLORIDE 0.9% 1000ML 1,000 ML IV SCH (18:12)
[2017-10-29] MEDS: INSULIN ASPART 100 UNITS/ML 3 ML PEN SC SCH ×2 (18:30→21:04)
[2017-10-29] MEDS: CEFAZOLIN IV 2,000 MG in SYRINGE 0 ML IV SCH (20:50)
[2017-10-29] MEDS: LOSARTAN POTASSIUM 25 MG TAB PO SCH (20:50)
[2017-10-29] MEDS: DOCUSATE SODIUM/SENNA 50/8.6MG TAB PO SCH (20:51)
[2017-10-29] MEDS: PRAVASTATIN SOD 20 MG TAB PO SCH (20:51)
[2017-10-29] MEDS: INSULIN GLARGINE SOLOSTAR 100 UNITS/ML 3 ML PEN SC SCH (21:05)
[2017-10-30] VITALS (9 sets, daily range): BP systolic 105–133; BP diastolic 52–62; PULSE 60–74; TEMP 36.5–36.8; O2SAT 88–96
[2017-10-30] MEDS: SODIUM CHLORIDE 0.9% 1000ML 1,000 ML IV SCH (02:26)
[2017-10-30] MEDS: CEFAZOLIN IV 2,000 MG in SYRINGE 0 ML IV SCH (03:51)
[2017-10-30] MEDS ORDERED: HYDROmorphone INJ 0.5 MG/0.5 ML SYR IV PRN (06:00)
[2017-10-30] MEDS ORDERED: NALOXONE HCL 0.4 MG/1 ML VIAL/CARP IV PRN (06:00)
[2017-10-30] MEDS ORDERED: DC PCA SCH (06:00)
--- NOTE | 2017-10-30 06:25 | Clinical Documentation Query ---
JANNETTE SwainESHA : CLINICAL DOCUMENTATION QUERY Patient is a 72 year old male who on 10/29 underwent posterior lumbosacral decompression, spinal and interbody fusions. Medical consultation notes the following: "RENAL INSUFFICIENCY Cr: 1.95 from preop labs on 10/17/17. No prior labs available for review -Monitor renal functions -Avoid nephrotoxic agents when possible" As appropriate, consider capture of this clinical uncertainty as suggested below in order to capture the severity of illness and risk of mortality associated with these clinical diagnoses. Thank you. In your clinical opinion is this patient being managed for: ( X ) CARIDAD versus CKD stage 3 ( ) Not Agree ( ) Other explanation of clinical findings (Please Explain. If no explanation given, this would be considered a no response.) ( ) Unable to determine ( ) Need to Discuss (Please call CDS via extension or qliq. If no interaction occurs this is considered a no response.) The medical record reflects the following clinical findings, treatment, and risk factors. Clinical Indicators: As above Treatment: Serial chemistries, avoidance of nephrotoxic agents. Risk Factors: Age, DM, hypertension Please clarify and document your clinical opinion in the progress notes and discharge summary. Terms such as "probable", "suspected", "likely", "questionable", "possible", or "still to be ruled out" are acceptable. IF IN AGREEMENT, YOU MUST DOCUMENT ABOVE DIAGNOSTIC STATEMENT IN DAILY PROGRESS NOTES AND DISCHARGE SUMMARY. This document is not part of the patient's record. Thank You, Saul Kate, RN [phone]
[2017-10-30] MEDS ORDERED: NURSING VERBAL MED ORDER ONE (06:45)
[2017-10-30 08:28] LABS: HEMATOCRIT 35.8 % (42-52); HEMOGLOBIN 12.5 g/dL (14.0-18.0); MEAN CELL VOLUME 86.7 fL (80-100); MEAN CORPUSCULAR HEMOGLOBIN 30.3 pg (25-34); MEAN CORPUSCULAR HGB CONC 34.9 g/dl (32-36); RED CELL DISTRIBUTION WIDTH CV 14.4 % (11.5-14.5); RED CELL DISTRIBUTION WIDTH SD 45.1 fL (36.4-46.3); WHITE BLOOD COUNT 10.53 K/uL (4.8-10.8)
[2017-10-30 08:29] LABS: PLATELET COUNT 98 K/uL (130-400)
[2017-10-30 08:49] LABS: IG# 0.02 K/uL (0.00-0.02); LYMPH % 4.7 %; LYMPH ABS # 0.49 K/uL (1.2-3.4); MEAN PLATELET VOLUME 10.4 fL (7.4-10.4); MONO % 3.1 %; MONO ABS # 0.33 K/uL (0.11-0.59); NEUT ABS # 9.69 K/uL (1.4-6.5)
[2017-10-30 08:55] LABS: CALCIUM 7.3 mg/dl (8.5-10.1); CREATININE 2.01 mg/dl (0.60-1.40); POTASSIUM 4.6 mmol/L (3.5-5.1)
[2017-10-30] MEDS: INSULIN ASPART 100 UNITS/ML 3 ML PEN SC SCH ×4 (09:20→20:50)
[2017-10-30] MEDS: INSULIN GLARGINE SOLOSTAR 100 UNITS/ML 3 ML PEN SC SCH ×2 (09:21→20:49)
[2017-10-30] MEDS: OXYCODONE HCL IR 5 MG TAB (IMMEDIATE RELEASE) PO PRN ×2 (09:23→10:38)
[2017-10-30] MEDS ORDERED: TAMSULOSIN HCL 0.4 MG CAP PO ONE (10:00)
[2017-10-30 10:11] LABS: HEMOGLOBIN A1C 6.9 % (4.5-5.6)
[2017-10-30] MEDS: DILTIAZEM HCL 120 MG EXT REL CAP PO SCH (10:38)
--- NOTE | 2017-10-30 12:53 | Progress Note ---
Progress Note Date of Service October 30, 2017. Progress Note Patient's back pain is controlled. He is not describing any leg pain. Vital signs are stable. On exam is reasonable strength testing bilateral lower extremities. Assessment status post lumbar decompression fusion. Plan at this time we will initiate physical therapy as tolerated we are considering [facility] if possible.
[2017-10-30] MEDS: DOCUSATE SODIUM/SENNA 50/8.6MG TAB PO SCH (20:46)
[2017-10-30] MEDS: PRAVASTATIN SOD 20 MG TAB PO SCH (20:46)
[2017-10-30] MEDS: LOSARTAN POTASSIUM 25 MG TAB PO SCH (21:00)
--- NOTE | 2017-10-30 22:30 | Progress Note ---
Medicine Progress Note Date & Time of Visit: October 30, 2017 at 17:05 . Subjective Doing well postoperatively. No chest pain. No cough or dyspnea. No nausea or vomiting. Had problems with significant urinary retention this morning; Vivas catheter inserted. Ambulated with physical therapy today. Postop pain well-controlled. . Objective Last 8 Hrs Date Time Temp Pulse Resp B/P (MAP) Pulse Ox O2 Delivery O2 Flow Rate FiO2 10/30/17 20:43 61 110/58 (75) 88 Room Air 10/30/17 15:44 36.7 65 18 123/60 (81) 92 Room Air 10/30/17 15:35 Room Air Physical Exam: General- no distress Lungs- clear to auscultation; no respiratory distress Cardiovascular- RRR; II/ systolic murmur at base; no gallop; no JVD; no pretibial edema Abdomen- + bowel sounds, soft, nontender Extremities- no cyanosis; no calf tenderness Neuro- alert, oriented Skin- warm & dry . Laboratory Results: Last 24 Hours Test 10/30/17 08:04 10/30/17 08:16 10/30/17 12:17 Bedside Glucose 191 mg/dl 153 mg/dl White Blood Count 10.53 K/uL Red Blood Count 4.13 M/uL Hemoglobin 12.5 g/dL Hematocrit 35.8 % Mean Corpuscular Volume 86.7 fL Mean Corpuscular Hemoglobin 30.3 pg Mean Corpuscular Hemoglobin Concent 34.9 g/dl Platelet Count 98 K/uL Mean Platelet Volume 10.4 fL Neutrophils (%) (Auto) 92.0 % Lymphocytes (%) (Auto) 4.7 % Monocytes (%) (Auto) 3.1 % Eosinophils (%) (Auto) 0.0 % Basophils (%) (Auto) 0.0 % Neutrophils # (Auto) 9.69 K/uL Lymphocytes # (Auto) 0.49 K/uL Monocytes # (Auto) 0.33 K/uL Eosinophils # (Auto) 0.00 K/uL Basophils # (Auto) 0.00 K/uL RDW Standard Deviation 45.1 fL RDW Coefficient of Variation 14.4 % Immature Granulocyte % (Auto) 0.2 % Immature Granulocyte # (Auto) 0.02 K/uL Sodium Level 135 mmol/L Potassium Level 4.6 mmol/L Chloride Level 104 mmol/L Carbon Dioxide Level 25 mmol/L Anion Gap 6.0 mmol/L Blood Urea Nitrogen 24 mg/dl Creatinine 2.01 mg/dl Est Creatinine Clear Calc Drug Dose 38.6 ml/min Estimated GFR () 37.0 Estimated GFR (Non- 32.0 BUN/Creatinine Ratio 11.7 Random Glucose 185 mg/dl Estimated Average Glucose 151 mg/dl Hemoglobin A1c 6.9 % Calcium Level 7.3 mg/dl Assessment & Plan STATUS POST LUMBAR DECOMPRESSION/FUSION Doing well postoperatively. HYPERTENSION BP this morning = 124/52. Continue diltiazem, losartan, terazosin. INTERSTITIAL LUNG DISEASE Pulmonary status stable. DIABETES MELLITUS TYPE 2 Hemoglobin A1c 6.9. Fasting blood sugar this morning = 191. Hold glipizide during hospital stay. Lantus/NovoLog per protocol. BPH/URINARY RETENTION Vivas cath inserted for urinary retention. Continue terazosin for BPH. RHEUMATOID ARTHRITIS Continue maintenance dose of prednisone. VTE PROPHYLAXIS Per Orthopedics protocol. Thank you for this consultation. We will follow the patient with you during their hospital stay. You can reach a member of the [facility] Medicine Team 14/01 via pager @ [phone]. You can reach me via cell @ [phone]. . Current Inpatient Medications: Current Inpatient Medications Medications (Trade) Dose Ordered Sig/Katharine Route Start Time Stop Time Status Last Admin Dose Admin Promethazine HCl 12.5 mg/Sodium Chloride 50.5 ml @ 202 mls/hr Q6H PRN IV 10/29/17 14:30 11/28/17 14:29 Ondansetron HCl (Zofran Inj) 4 mg Q6H PRN IV 10/29/17 14:30 11/28/17 14:29 Metoclopramide HCl (Reglan Inj) 10 mg Q6H PRN IV 10/29/17 14:30 11/28/17 14:29 Lorazepam (Ativan Tab) 0.5 mg Q8H PRN PO 10/29/17 14:30 11/28/17 14:29 Lorazepam 0.5 mg/ Syringe 0.25 ml @ 1 mls/min Q8H PRN IV 10/29/17 14:30 11/28/17 14:29 Pneumococcal Polysaccharide Vaccine 1 ea PRN PRN N/A 10/29/17 14:30 11/28/17 14:29 Influenza Virus Vacc Triv Types A&B 1 ea PRN PRN N/A 10/29/17 14:30 11/28/17 14:29 Polyethylene (Miralax Powder Packet) 17 gm Q6 PO 10/31/17 06:00 11/30/17 05:59 Bisacodyl (Dulcolax Supp) 10 mg DAILY PRN DE 10/29/17 14:30 11/28/17 14:29 Magnesium Hydroxide (Milk Of Magnesia Susp) 30 ml DAILY PRN PO 10/29/17 14:30 11/28/17 14:29 Hydromorphone HCl (Dilaudid Inj) 0.5-1mg prn moder... Q3H PRN IV 10/30/17 06:00 11/13/17 05:59 Oxycodone HCl (Roxicodone Immediate Rel Tab) 5-10mg prn moderate to sev... Q4H PRN PO 10/30/17 06:00 11/13/17 05:59 10/30/17 10:38 10 MG Acetaminophen (Tylenol Tab) 1,000 mg Q8H PRN PO 10/29/17 14:30 11/28/17 14:29 Acetaminophen 100 ml @ 400 mls/hr Q8H PRN IV 10/29/17 14:30 11/28/17 14:29 Naloxone HCl (Narcan Inj) 0.1 mg Q5M PRN IV 10/30/17 06:00 11/29/17 05:59 Senna/Docusate Sodium (Senokot S Tab) 2 tab HS PO 10/29/17 21:00 11/28/17 20:59 10/30/17 20:46 2 TAB Sodium Biphosphate/ Sodium Phosphate (Fleet Enema) 132 ml ONE PRN DE 10/29/17 14:30 11/28/17 14:29 Hydroxyzine HCl (Vistaril Tab) 25 mg Q8H PRN PO 10/29/17 14:30 11/28/17 14:29 Al Hydroxide/Mg Hydroxide (Maalox Susp) 30 ml Q6H PRN PO 10/29/17 14:30 11/28/17 14:29 Famotidine (Pepcid Tab) 20 mg Q12 PRN PO 10/29/17 14:30 11/28/17 14:29 Diphenhydramine HCl (Benadryl Cap) 25 mg Q6H PRN PO 10/29/17 14:30 11/28/17 14:29 Atenolol (Tenormin Tab) 25 mg QAM PO 10/30/17 09:00 11/29/17 08:59 10/30/17 09:25 25 MG Diltiazem HCl (TIAzac CAP) 120 mg QAM PO 10/30/17 09:00 11/29/17 08:59 10/30/17 10:38 120 MG Losartan Potassium (coZAAR TAB) 25 mg QPM PO 10/29/17 21:00 11/28/17 20:59 10/30/17 21:00 25 MG Pravastatin Sodium (Pravachol Tab) 20 mg QPM PO 10/29/17 21:00 11/28/17 20:59 10/30/17 20:46 20 MG Prednisone (PredniSONE TAB) 5 mg QAM PO 10/30/17 09:00 11/29/17 08:59 10/30/17 09:23 5 MG Terazosin HCl (Hytrin Cap) 5 mg HS PO 10/29/17 21:00 11/28/17 20:59 10/30/17 20:46 5 MG Insulin Glargine (Lantus Solostar Pen) 15 units Q12 SC 10/29/17 21:00 11/28/17 20:59 10/30/17 20:49 15 UNITS Insulin Aspart (novoLOG ASPART) SLIDING SCALE If C... ACHS SC 10/29/17 17:15 11/28/17 17:14 10/30/17 20:50 1 UNITS Glucose (Glucose 40% Gel) 15-30 GRAMS 15 GRAMS... UD PRN PO 10/29/17 17:00 11/28/17 16:59 Glucose (Glucose Chew Tab) 4-8 Tablets 4 Tabl... UD PRN PO 10/29/17 17:00 11/28/17 16:59 Dextrose (Dextrose 50% 50ML Syringe) 25-50ML 25ML FOR ... UD PRN IV 10/29/17 17:00 11/28/17 16:59 Glucagon (Glucagon Inj) 1 mg UD PRN SQ 10/29/17 17:00 11/28/17 16:59 Carbohydrates (Carbohydrates For Hypoglycemia) 15-30 GRAMS 15 grams if BSG 54-69... UD PRN PO 10/29/17 17:00 11/28/17 16:59 Tamsulosin HCl (Flomax Cap) 0.4 mg QAM PO 10/31/17 09:00 11/30/17 08:59
[2017-10-31] MEDS: POLYETHYLENE (MIRALAX) 17 GM PACK PO SCH ×4 (05:25→23:47)
[2017-10-31 07:42] VITALS: BP 128/56; PULSE 66; TEMP 36.5; O2SAT 92
[2017-10-31] MEDS ORDERED: TAMSULOSIN HCL 0.4 MG CAP PO SCH (09:00)
--- NOTE | 2017-10-31 09:00 | Progress Note ---
Progress Note Date of Service October 31, 2017. Progress Note Patient's back pain is controlled. Leg symptoms improved. Vital signs stable. On exam he is in the chair at the bedside is good strength testing. Assessment status post lumbar decompression and fusion. Plan at this time will discontinue his Vivas today. Hopefully able to urinate on his own. If not we will have to consult urology. We will plan on discharge home tomorrow with home health.
[2017-10-31] MEDS: INSULIN GLARGINE SOLOSTAR 100 UNITS/ML 3 ML PEN SC SCH ×2 (09:18→21:20)
[2017-10-31] MEDS: INSULIN ASPART 100 UNITS/ML 3 ML PEN SC SCH ×4 (09:18→21:00)
[2017-10-31] MEDS: DILTIAZEM HCL 120 MG EXT REL CAP PO SCH (09:19)
[2017-10-31 09:34] LABS: CALCIUM 7.9 mg/dl (8.5-10.1); CREATININE 2.04 mg/dl (0.60-1.40); POTASSIUM 4.2 mmol/L (3.5-5.1)
[2017-10-31 15:12] VITALS: BP 125/56; PULSE 57; TEMP 36.9; O2SAT 92
[2017-10-31] MEDS: DOCUSATE SODIUM/SENNA 50/8.6MG TAB PO SCH (21:00)
[2017-10-31 21:10] VITALS: BP 145/69; PULSE 60
[2017-10-31] MEDS: PRAVASTATIN SOD 20 MG TAB PO SCH (21:12)
[2017-10-31] MEDS: LOSARTAN POTASSIUM 25 MG TAB PO SCH (21:12)
[2017-10-31 23:00] VITALS: BP 138/71; PULSE 61; TEMP 36.7; O2SAT 94
--- NOTE | 2017-10-31 23:43 | Progress Note ---
Medicine Progress Note Date & Time of Visit: October 31, 2017 at 16:45 . Subjective Doing fairly well postoperatively. No chest pain. No cough. Stable dyspnea on exertion. No nausea or vomiting. Constipated. Vivas catheter removed this morning and voiding without difficulty. Ambulated with physical therapy today. More postoperative pain today; reluctant to take analgesics because of constipation. . Objective Last 8 Hrs Date Time Temp Pulse Resp B/P (MAP) Pulse Ox O2 Delivery O2 Flow Rate FiO2 10/31/17 23:00 36.7 61 16 138/71 (93) 94 Room Air 10/31/17 21:10 60 145/69 (94) 10/31/17 20:15 Room Air Physical Exam: General- no distress Lungs- clear to auscultation; no respiratory distress Cardiovascular- RRR; II/ systolic murmur at base; no gallop; no JVD; no pretibial edema Abdomen- + bowel sounds, soft, nontender Extremities- no cyanosis; no calf tenderness Neuro- alert, oriented Skin- warm & dry . Laboratory Results: Last 24 Hours Test 10/31/17 08:09 10/31/17 08:45 10/31/17 11:52 10/31/17 16:58 Bedside Glucose 164 mg/dl 124 mg/dl 151 mg/dl Sodium Level 135 mmol/L Potassium Level 4.2 mmol/L Chloride Level 104 mmol/L Carbon Dioxide Level 26 mmol/L Anion Gap 5.0 mmol/L Blood Urea Nitrogen 29 mg/dl Creatinine 2.04 mg/dl Est Creatinine Clear Calc Drug Dose 38.0 ml/min Estimated GFR () 36.4 Estimated GFR (Non- 31.4 BUN/Creatinine Ratio 14.2 Random Glucose 148 mg/dl Calcium Level 7.9 mg/dl Test 10/31/17 20:49 Bedside Glucose 149 mg/dl Assessment & Plan STATUS POST LUMBAR DECOMPRESSION/FUSION Doing well postoperatively. ABNORMAL EKG / CARDIOMYOPATHY Preoperative echocardiogram performed 10/23/17 at [facility] demonstated concentric LVH, LVEF of 45% with inferior wall hypokinesis, diastolic dysfunction. Pharmacologic nuclear stress test performed 10/24/17 at [facility]. There was no evidence of stress-induced ischemia. Monitor for CHF. Diuresis as needed. HYPERTENSION BP this morning = 128/56. Continue diltiazem, losartan, terazosin. INTERSTITIAL LUNG DISEASE Pulmonary status stable. Continue incentive spirometry. RENAL INSUFFICIENCY Serum creatinine 1.95-2.04 postoperatively. Baseline creatinine unknown. Old records requested. Avoid NSAID use postoperatively if possible. DIABETES MELLITUS TYPE 2 Hemoglobin A1c 6.9. Fasting blood sugar this morning = 164. Hold glipizide during hospital stay. Lantus/NovoLog per protocol. BPH/URINARY RETENTION Vivas cath inserted postoperatively for urinary retention. Continue terazosin for BPH. RHEUMATOID ARTHRITIS Continue maintenance dose of prednisone. VTE PROPHYLAXIS Per Orthopedics protocol. Thank you for this consultation. We will follow the patient with you during their hospital stay. You can reach a member of the [facility] Medicine Team 14/01 via pager @ [phone]. You can reach me via cell @ [phone]. . Current Inpatient Medications: Current Inpatient Medications Medications (Trade) Dose Ordered Sig/Katharine Route Start Time Stop Time Status Last Admin Dose Admin Promethazine HCl 12.5 mg/Sodium Chloride 50.5 ml @ 202 mls/hr Q6H PRN IV 10/29/17 14:30 11/28/17 14:29 Ondansetron HCl (Zofran Inj) 4 mg Q6H PRN IV 10/29/17 14:30 11/28/17 14:29 Metoclopramide HCl (Reglan Inj) 10 mg Q6H PRN IV 10/29/17 14:30 11/28/17 14:29 Lorazepam (Ativan Tab) 0.5 mg Q8H PRN PO 10/29/17 14:30 11/28/17 14:29 Lorazepam 0.5 mg/ Syringe 0.25 ml @ 1 mls/min Q8H PRN IV 10/29/17 14:30 11/28/17 14:29 Pneumococcal Polysaccharide Vaccine 1 ea PRN PRN N/A 10/29/17 14:30 11/28/17 14:29 Influenza Virus Vacc Triv Types A&B 1 ea PRN PRN N/A 10/29/17 14:30 11/28/17 14:29 Polyethylene (Miralax Powder Packet) 17 gm Q6 PO 10/31/17 06:00 11/30/17 05:59 10/31/17 17:55 17 GM Bisacodyl (Dulcolax Supp) 10 mg DAILY PRN MN 10/29/17 14:30 11/28/17 14:29 Magnesium Hydroxide (Milk Of Magnesia Susp) 30 ml DAILY PRN PO 10/29/17 14:30 11/28/17 14:29 Hydromorphone HCl (Dilaudid Inj) 0.5-1mg prn moder... Q3H PRN IV 10/30/17 06:00 11/13/17 05:59 Oxycodone HCl (Roxicodone Immediate Rel Tab) 5-10mg prn moderate to sev... Q4H PRN PO 10/30/17 06:00 11/13/17 05:59 10/30/17 10:38 10 MG Acetaminophen (Tylenol Tab) 1,000 mg Q8H PRN PO 10/29/17 14:30 11/28/17 14:29 Acetaminophen 100 ml @ 400 mls/hr Q8H PRN IV 10/29/17 14:30 11/28/17 14:29 Naloxone HCl (Narcan Inj) 0.1 mg Q5M PRN IV 10/30/17 06:00 11/29/17 05:59 Senna/Docusate Sodium (Senokot S Tab) 2 tab HS PO 10/29/17 21:00 11/28/17 20:59 10/30/17 20:46 2 TAB Sodium Biphosphate/ Sodium Phosphate (Fleet Enema) 132 ml ONE PRN MN 10/29/17 14:30 11/28/17 14:29 Hydroxyzine HCl (Vistaril Tab) 25 mg Q8H PRN PO 10/29/17 14:30 11/28/17 14:29 Al Hydroxide/Mg Hydroxide (Maalox Susp) 30 ml Q6H PRN PO 10/29/17 14:30 11/28/17 14:29 Famotidine (Pepcid Tab) 20 mg Q12 PRN PO 10/29/17 14:30 11/28/17 14:29 Diphenhydramine HCl (Benadryl Cap) 25 mg Q6H PRN PO 10/29/17 14:30 11/28/17 14:29 Atenolol (Tenormin Tab) 25 mg QAM PO 10/30/17 09:00 11/29/17 08:59 10/31/17 09:19 25 MG Diltiazem HCl (TIAzac CAP) 120 mg QAM PO 10/30/17 09:00 11/29/17 08:59 10/31/17 09:19 120 MG Losartan Potassium (coZAAR TAB) 25 mg QPM PO 10/29/17 21:00 11/28/17 20:59 10/31/17 21:12 25 MG Pravastatin Sodium (Pravachol Tab) 20 mg QPM PO 10/29/17 21:00 11/28/17 20:59 10/31/17 21:12 20 MG Prednisone (PredniSONE TAB) 5 mg QAM PO 10/30/17 09:00 11/29/17 08:59 10/31/17 09:20 5 MG Terazosin HCl (Hytrin Cap) 5 mg HS PO 10/29/17 21:00 11/28/17 20:59 10/31/17 21:12 5 MG Insulin Glargine (Lantus Solostar Pen) 15 units Q12 SC 10/29/17 21:00 11/28/17 20:59 10/31/17 21:20 15 UNITS Insulin Aspart (novoLOG ASPART) SLIDING SCALE If C... ACHS SC 10/29/17 17:15 11/28/17 17:14 10/31/17 17:58 8 UNITS Glucose (Glucose 40% Gel) 15-30 GRAMS 15 GRAMS... UD PRN PO 10/29/17 17:00 11/28/17 16:59 Glucose (Glucose Chew Tab) 4-8 Tablets 4 Tabl... UD PRN PO 10/29/17 17:00 11/28/17 16:59 Dextrose (Dextrose 50% 50ML Syringe) 25-50ML 25ML FOR ... UD PRN IV 10/29/17 17:00 11/28/17 16:59 Glucagon (Glucagon Inj) 1 mg UD PRN SQ 10/29/17 17:00 11/28/17 16:59 Carbohydrates (Carbohydrates For Hypoglycemia) 15-30 GRAMS 15 grams if BSG 54-69... UD PRN PO 10/29/17 17:00 11/28/17 16:59
[2017-11-01] MEDS: POLYETHYLENE (MIRALAX) 17 GM PACK PO SCH ×2 (05:33→12:56)
[2017-11-01 07:44] VITALS: BP 143/73; PULSE 60; TEMP 36.7; O2SAT 93
[2017-11-01 08:10] LABS: CALCIUM 8.3 mg/dl (8.5-10.1); CREATININE 1.76 mg/dl (0.60-1.40); POTASSIUM 3.7 mmol/L (3.5-5.1)
[2017-11-01] MEDS: INSULIN ASPART 100 UNITS/ML 3 ML PEN SC SCH ×2 (09:17→12:57)
[2017-11-01] MEDS: INSULIN GLARGINE SOLOSTAR 100 UNITS/ML 3 ML PEN SC SCH (09:19)
[2017-11-01] MEDS ORDERED: RXC5 PO (10:22)
--- NOTE | 2017-11-01 10:23 | Discharge Instructions ---
Discharge Instructions Date of Service November 01, 2017. Admission Reason for Admission: Spinal Stenosis Discharge Discharge Diagnosis / Problem: lumbar stenosis Discharge Goals Goal(s): Improve function Activity Recommendations Activity Limitations: per Instructions/Follow-up section . Instructions / Follow-Up Instructions / Follow-Up ACTIVITY RECOMMENDATIONS: SELF CARE INSTRUCTIONS AFTER THORACIC/LUMBAR FUSIONS 1. You may walk to your tolerance. It is good exercise for your legs and back. Expect some back and intermittent leg aches and pains. 2. You may perform "counter-top" level activities (make a sandwich, santhosh with a project, etc.). 3. No bending or lifting of more than 10 pounds or back twisting of any nature (roll like a log when turning in bed). 4. You may ride in a car for 20-30 minutes at a time. No driving until after your first visit with your doctor. 5. Frequent changes of position and restricting sitting to 30 minutes at a time will help limit the amount of back spasms and stiffness you may experience. 6. You may discontinue the use of ambulatory aids (cane, crutches, etc.) once your strength and confidence allow. 7. You may junior linux administrator the shower and let water strike your incision when you arrive home at least once daily. Do not take a tub bath, sit in a hot tub or go into a swimming pool until after your first recheck in the office. SPECIAL CARE INSTRUCTIONS: VERY IMPORTANT TO READ AND REVIEW A. Your surgical incision has been closed with a cosmetic suture under the skin that will dissolve in about 6 weeks. In 14 days, you can use a pair of clean scissors and cut the suture that is left outside of the skin at the ends of your incision. 1. The small skin tapes can be removed 7 days after surgery if they have not fallen off by that point. 2. You may keep the wound open to air as much as possible to promote healing after post-op day number 5 unless told otherwise by your doctor. 3. If you think the wound looks like it is becoming infected (redness or worsening drainage) and/or you are experiencing fever, chill or worsening back pain and muscle spasms, contact the office so that we may evaluate you as soon as possible. B. Complications are uncommon, but please contact us if you have any signs or symptoms of: 1. wound infection (fever higher than 102.5 degrees F, redness, separation of wound, drainage, or increasing pain from the incision) 2. blood clots in legs (pain, swelling, redness and warmth in legs) 3. urinary tract infection (fever higher than 102.5 degrees F, burning upon urination or increased frequency of urination) 4. nerve problems (inability to walk on your toes or heels, numbness, loss of bowel or bladder control) 5. any other symptoms that concern you C. Please call the office at if you have any concerns or questions about your operation or recovery. D. No smoking! Smoking drastically decreases the chance of a solid fusion. E. Do not take any anti-inflammatory medications (Indocin, Advil, Motrin, Aspirin, Naprosyn, etc.) as these may inhibit the chance of a solid fusion. Tylenol is okay to take for pain. MANAGING PAIN AFTER SPINAL SURGERY 1. Narcotic medication is intended for short-term use and will be provided for surgical pain. Surgical pain usually lasts for a period of 4-6 weeks. Narcotic medication includes Percocet, Vicodin, Darvocet, Tylenol #3 or Lortab. 2. Longer-term pain is more appropriately treated with non-narcotic medication such as Tylenol ES. 3. Muscle spasm is not appropriately treated with narcotics. Muscle relaxers such as Soma, Flexeril or Skelaxin can be used along with Tylenol ES. 4. Remember that we all live with some "aches and pains". This is not unusual or uncommon after an injury or as we get older. a. Back pain is expected and may include muscle spasms for 4 to 6 weeks after surgery. The pain should gradually improve. If the pain worsens for no apparent reason, please contact the office. b. Intermittent leg pain may also be experienced and should not be concerned about unless it worsens for no apparent reason. If so, please contact the office. 5. We will provide appropriate medication within the normal guidelines of their prescribed use. We will also be very cautious and aware of potential abuse and extended duration of patients' medication needs. a. Pain medications are for your comfort and to assist with sleep and rest so that the tissue can heal. They are not provided in order to return to normal activity and should not be used through the day. To do so or worsening pain at night can result from ongoing tissue damage and development of tolerance to the prescribed medicine. 6. Please allow 2-3 days to process refills. Prescriptions will not be mailed but must be picked up at the office. FOLLOW UP VISIT: Keep your scheduled follow-up appointment. Any questions, please call the office at . Current Hospital Diet Patient's current hospital diet: Diabetes Type 2 Diet Discharge Diet Recommended Diet: Regular Diet Procedures Procedures Performed: 1. Lumbar decompression medial facetectomy foraminotomies L4-5 L5-S1. #2 posterior spinal fusion L5-S1. #3 posterior instrumentation L5-S1. #4 interbody fusion L5-S1. #5 titanium cage 10 x 26 at L5-S1. #6 placement of local autograft posterior lateral gutters. #7 infuse collagen sponge, Nast graft the posterior gutters and ostial amp in the interbody space. Pending Studies Studies pending at discharge: no Laboratory Results Hemoglobin A1c Test 10/30/17 08:16 Range/Units Estimated Average Glucose 151 mg/dl Hemoglobin A1c 6.9 H 4.5-5.6 % Medical Emergencies . Who to Call and When: Medical Emergencies: If at any time you feel your situation is an emergency, please call 911 immediately. . Non-Emergent Contact Non-Emergency issues call your: Primary Care Provider . "Provider Documentation" section prepared by Julio C Alberto. .
[2017-11-01] MEDS: DILTIAZEM HCL 120 MG EXT REL CAP PO SCH (11:00)
[2017-11-01 13:00] VITALS: BP 143/73; PULSE 60; TEMP 36.7; O2SAT 93
--- NOTE | 2017-11-01 13:26 | Discharge Summary ---
Orthopedic Discharge Summary Admission Date/Reason October 29, 2017 at 12:00 Spinal Stenosis. Discharge Date/Disposition November 01, 2017 Home Diagnosis Principal Diagnosis: Lumbar spinal stenosis Admission Physical Exam As per Admitting History & Physical. Hospital Course Patient underwent lumbar decompression fusion tolerated as well as taken to the orthopedic floor postoperatively. Postop day #1 he was up and amatory progress nicely through postop day #2 subsequently discharged home on postop day #3. Discharge orders and instructions can be found on the chart for further review. Discharge Instructions Please refer to the electronic Patient Visit Report (Discharge Instructions) for additional information.
== END 2017-11-01 12:25 | disposition home or self-care (01) | DRG 454 ==
LOC: C.ACU 08:40 → C.MSW 12:00 → ENRESERV 15:40
PROVIDERS: ADMIT Orthopaedic Surgery Orthopaedic Surgery of the Spine; ATTEND Orthopaedic Surgery Orthopaedic Surgery of the Spine
PROC: 0SG3071 Fusion of Lumbosacral Joint with Autologous Tissue Substitute, Posterior Approach, Posterior Column, Open Approach (ICD-10-PCS; principal; 2017-10-29 11:35)
PROC: 0SG30AJ Fusion of Lumbosacral Joint with Interbody Fusion Device, Posterior Approach, Anterior Column, Open Approach (ICD-10-PCS; principal; 2017-10-29 11:35)
PROC: 0ST40ZZ Resection of Lumbosacral Disc, Open Approach (ICD-10-PCS; principal; 2017-10-29 11:35)
DX: M48.062 Spinal stenosis, lumbar region with neurogenic claudication (principal); J84.9 Interstitial pulmonary disease, unspecified; N17.9 Acute kidney failure, unspecified; E11.9 Type 2 diabetes mellitus without complications; I12.9 Hypertensive chronic kidney disease with stage 1 through stage 4 chronic kidney disease, or unspecified chronic kidney disease; E78.5 Hyperlipidemia, unspecified; M06.9 Rheumatoid arthritis, unspecified; D69.6 Thrombocytopenia, unspecified; N18.3 Chronic kidney disease, stage 3 (moderate); N40.1 Benign prostatic hyperplasia with lower urinary tract symptoms